=== PATIENT | male | born 1965 | race Caucasian/White ===

== ENCOUNTER 2018-11-14 07:56 | Emergency (ER) | payer SELFPAY ==
[~2018-11-14] VITALS: Ht 177.8 cm; Wt 81.7 kg
[2018-11-14] MEDS ORDERED: CHLORDIAZEPOXID25 MG PO (08:17)
== END 2018-11-14 08:25 | disposition home or self-care (01) ==
LOC: ED 07:56
DX: F10.239 Alcohol dependence with withdrawal, unspecified (principal); Z76.5 Malingerer [conscious simulation]; I10 Essential (primary) hypertension; Z87.891 Personal history of nicotine dependence; Z88.0 Allergy status to penicillin
CPT/HCPCS: 99284